=== PATIENT | female | born 1995 | race Caucasian/White ===

== ENCOUNTER 2017-10-09 21:52 | Emergency (ER) | payer SELFPAY ==
[~2017-10-09] VITALS: Ht 165.1 cm; Wt 81.6 kg
[2017-10-09 21:58] VITALS: BP 110/73
== END 2017-10-10 00:22 | disposition home or self-care (01) ==
LOC: ER 21:55
DX: S93.492A Sprain of other ligament of left ankle, initial encounter (principal); W18.30XA Fall on same level, unspecified, initial encounter; Y93.01 Activity, walking, marching and hiking; Y92.89 Other specified places as the place of occurrence of the external cause; Y99.8 Other external cause status
CPT/HCPCS: 73610; 84703; 99285; A4606; Z7610